=== PATIENT | female | born 1975 | race Caucasian/White ===

== ENCOUNTER 2016-11-28 18:10 | Emergency (ER) | payer OTHER ==
[~2016-11-28] VITALS: Ht 152.4 cm; Wt 59.0 kg
[~2016-11-28 18:10] MED LIST: APAP/CODEINE TAB 300; AUGMENTIN 875-1 EACH PO; BENZOYL PEROXIDE; BUPROPION HYDR150 M1 PO; CLINDAMYCIN; CLONAZEPAM1 MG PO; DESOGEN 0.15 MG1 TAB PO; DIFLUCAN150 M1 PO; FETZIMA120 MG PO; GUAIFENESIN-COD10 ML PO; IMITREX100 M1 PO; LOVAZA1 GM PO; TOPIRAMATE100 MG PO; ZOLPIDEM TART12.5 MG PO
[2016-11-28] MEDS ORDERED: TRAMADOL HCL E200 MG PO (18:51)
[2016-11-28] MEDS ORDERED: TRAMADOL HCL50 M1 PO (18:52)
[2016-11-28] MEDS ORDERED: DUAC 1.2-5% GEL45 GM TOP (18:53)
[2016-11-28] MEDS ORDERED: DIFFERIN TOP (18:53)
[2016-11-28] MEDS ORDERED: ACZONE60 GM TOP (18:53)
[2016-11-28] MEDS ORDERED: LINZESS145 MC1 PO (18:54)
[2016-11-28] MEDS ORDERED: GABAPENTIN300 M2 PO (18:54)
[2016-11-28] MEDS ORDERED: TOVIAZ4 MG PO (18:55)
[2016-11-28] MEDS ORDERED: FLUTICASONE PRO16 GM NASB (18:55)
--- NOTE | 2016-11-28 19:03 | ED HEADACHE COMPLAINT ---
History of Present Illness General Chief Complaint: Headache Stated Complaint: MENDOZA, X 5 DAYS Source: patient, family, old records Exam Limitations: no limitations Vital Signs & Intake/Output Vital Signs & Intake/Output Vital Signs Date Time Temp Pulse Resp B/P Pulse O2 O2 Flow FiO2 Ox Delivery Rate 11/28 2154 97.5 90 18 132/80 98 Room Air Room Air 11/28 2005 97.1 105 18 133/84 100 Room Air 11/28 1838 98.9 120 20 150/100 98 Room Air ED Intake and Output 11/29 0000 11/28 1200 Intake Total 1500 Output Total Balance 1500 Intake, IV 1500 Patient 130 lb Weight Allergies Coded Allergies: clarithromycin (From BIAXIN) (Intermediate, GI DISTRESS 11/28/16) Reconcile Medications Adapalene (Differin) 0.3 % GEL..GRAM. 1 YAMIL TOP QPM FACE (Reported) apply sparingly to face, avoid the sun Clindamycin Phos/Benzoyl Perox (Duac 1.2-5% Gel) 1.2 % (1 % BASE)-5 % GEL..GRAM. 1 YAMIL TOP QPM FACE (Reported) apply to affected area(s) Clonazepam 1 MG TABLET 1 TAB PO 6XDAILY PRN ANXIETY (Reported) Dapsone (Aczone) 5 % GEL..GRAM. 1 YAMIL TOP QAM FACE (Reported) Fesoterodine Fumarate (Toviaz) 4 MG TAB.ER.24H 1 TAB PO DAILY BLADDER ( Reported) Fluticasone Propionate 50 MCG/ACTUATION SPRAY.SUSP 2 SPRAY NASB PRN ALLERGIES (Reported) Gabapentin 300 MG CAPSULE 1 CAP PO PRN ANXIETY (Reported) LEVOMILNACIPRAN HYDROCHLORIDE (Fetzima) 120 MG CER 1 CAP PO DAILY DEPRESSION (Reported) Linaclotide (Linzess) 145 MCG CAPSULE 1 CAP PO DAILY GI (Reported) Lorazepam (Ativan) 1 MG TABLET 1 TAB PO QHS INSOMNIA [id number] Ethyl Esters (Lovaza) 1 GM CAP 2 CAP PO BID CHOLESTEROL ( Reported) Ondansetron (Zofran Odt) 4 MG TAB.RAPDIS 1 TAB SL TID NAUSEA Oxycodone HCl/Acetaminophen (Percocet 5-325 MG Tablet) 5 MG-325 MG TABLET 1 TAB PO TID PRN PAIN Sumatriptan Succinate (Imitrex) 100 MG TABLET 1 TAB PO AD PRN MIGRAINES ( Reported) with fluids as early as possible after the onset of a migraine attack;may repeat after 2 hours if headache returns, not to exce Tramadol HCl (Tramadol HCl ER) (Unknown Strength) TAB.ER.24H (Unknown Dose) PO DAILY UNKNOWN (Reported) Tramadol HCl (Unknown Strength) TABLET (Unknown Dose) PO AD PAIN (Reported) Zolpidem Tartrate (Zolpidem Tartrate ER) 12.5 MG TAB.MPHASE 2 TAB PO QPM PRN INSOMNIA (Reported) Triage Note: TRIAGE: PT TO ER C/C MIGRIANE HEADACHE, ONSET 03:30, CONSTANT SINCE ONSET. TRIED TO TAKE MEDICATIONS BUT WAS VOMITING. PT VERY EMOTIONAL AND DISTRAUGHT AT TRIAGE. REQUESTING THEY NOT GIVE HER TRAMADOL IT GAVE HER "CRAZY INSOMNIA". Triage Nurses Notes Reviewed? yes Onset: Abrupt Duration: day(s): (1), constant Timing: recent history Quality/Severity: moderate, achy, constant Severity Numbers: 6 Head Injury Location: frontal No Modifying Factors: none Associated Symptoms: anxiety : No Patient currently breastfeeds: No HPI: 40-year-old female with history of migraines anxiety depression presents complaining of a migraine headache without aura since 3:00 this morning associated with multiple episodes of nausea and vomiting. Patient's been unable to take any of her medication secondary to her symptoms. She reports positive photosensitivity. There is been no recent fall or head trauma no neck pain fever chills she denies any chest pain shortness of breath abdominal pain. The patient reports that she's been under increased stress at home and is very anxious at this time. She states she's been unable to take her anxiety medication secondary to her vomiting. (SEVEN LOPEZ) Past History Travel History Traveled to [place] past 21 day No Medical History Any Pertinent Medical History? 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 No (SEVEN LOPEZ) Review of Systems Review of Systems Constitutional: Reports: see HPI. All Other Systems: Reviewed and Negative Comments Review of systems: See HPI, All other systems negative. Constitutional, no chills no fever, HEENT: no sore throat no congestion, no ear pain Cardiovascular: No chest pain , no palpitation Skin, no jaundice no rashes, no change in skin Respiratory: No dyspnea no cough no sputum no hemoptysis GI: nausea vomiting, no diarrhea, no bloating/constipation : No dysuria No hematuria, frequency, no discharge Muscle skeletal: No joint pain, no joint swelling, no back pain, no neck pain, Neurologic: No numbness no confusion, headache Psych: stress anxiety no depression,. Heme/endocrine: No bruising no bleeding Immunology: No lymphadenopathy (SEVEN LOPEZ) Physical Exam Physical Exam General Appearance: well developed/nourished, alert, awake Cranial Nerves: normal hearing, normal speech, PERRL Comments: Well-developed well-nourished person in no acute distress HEENT: Normal EENT exam; PERRL, EOMI, no nystagmus. HEAD is atraumatic. moist mucous membranes. Neck: Supple, no lymphadenopathy, normal range of motion without pain or tenderness Back: Nontender, no CVA tenderness. Full range of motion Cardiovascular: Regular rate and rhythms no murmurs rubs Respiratory: No respiratory distress. Patient speaking in full complete sentences. Breath sounds clear to auscultation bilaterally: NO W/R/R Abdomen: Soft, nontender nondistended, no appreciable organomegaly. Extremity: No edema, full range of motion of extremities Neuro: Alert oriented x3, motor sensory normal, cranial nerves II through XII grossly intact. There were no obvious focal neurologic abnormalities. Skin: No appreciable rash on exposed skin, skin is warm and dry. Psych: Mood and affect is normal, memory and judgment is normal. Core Measures Severe Sepsis Present: No Septic Shock Present: No (SEVEN LOPEZ) Progress Differential Diagnosis: cluster MENDOZA, IC mass/tumor, intracranial Hem., meningitis , migraine MENDOZA, musculoskeletal pain, sinusitis, tension MENDOZA Plan of Care: Current Medications Sig/Cristóbal Start time Last Medication Dose Stop Time Status Admin Sodium Chloride 1,000 ML BOLUS ONE 11/28 1914 AC (Normal Saline 0.9%) 11/28 2013 Labs ordered old records reviewed patient is very anxious tearful Ativan 1 oral 30 IV fluids Zofran 4 IV ordered 11/28/2016 9:15:06 PM discussed with the patient plan of care she states she is feeling improved, IV fluids are running discussed with her need for close follow up with her primary care she is scheduled to see neurologist next week prescription for Percocet Ativan and Zofran provided she feels comfortable with this plan. I discussed with the patient at length all of their results, need for close follow up with their primary care physician. This week. I answered all of their questions, they feel comfortable with the plan and follow-up care. I discussed the medications that they will receive with the patient. I gave them signs and symptoms that could indicate an adverse reaction. I have advised them to limit their activities until they can see how they respond to the medication. (SEVEN LOPEZ) Departure Departure Time of Disposition: 2139 Disposition: HOME OR SELF CARE Condition: Stable Clinical Impression Primary Impression: Migraine Referrals: LASHONDA FERNANDEZ,JESUSITA (PCP/Family) Additional Instructions: Follow-up with your primary care physician as well as neurologist as scheduled. Zofran as needed for nausea. Percocet for breakthrough pain. Use caution as this is a narcotic and may make you drowsy no driving or drinking alcohol while taking. Ativan as directed- you may take one of these this evening to help you sleep. Do not take any Ambien or Klonopin that you have prescribed with this medication.. Stop taking the tramadol you have. These prescriptions were sent to your pharmacy Departure Forms: Customer Survey General Discharge Information Prescriptions: Current Visit Scripts Oxycodone HCl/Acetaminophen (Percocet 5-325 MG Tablet) 1 TAB PO TID PRN PAIN #10 TAB Lorazepam (Ativan) 1 TAB PO QHS #7 TAB Ondansetron (Zofran Odt) 1 TAB SL TID #12 TAB (SEVEN LOPEZ) PA/PUMPER GAGER APPRENTICE Co-Sign Statement Statement: ED Attending supervision documentation- [] I saw and evaluated the patient. I have also reviewed all the pertinent lab results and diagnostic results. I agree with the findings and the plan of care as documented in the PA's/PUMPER GAGER APPRENTICE's documentation. [x] I have reviewed the ED Record and agree with the PA's/PUMPER GAGER APPRENTICE's documentation. [] Additions or exceptions (if any) to the PAs/PUMPER GAGER APPRENTICE's note and plan are summarized below: [] (DYLON FERNANDEZ,VIVEK Diallo)
[2016-11-28] MEDS ORDERED: ZOFRAN ODT4 M1 SL (21:42)
[2016-11-28] MEDS ORDERED: PERCOCET 5-3251 EACH PO (21:42)
[2016-11-28] MEDS ORDERED: ATIVAN1 M1 PO (21:42)
[2016-11-28 21:55] VITALS: BP 132/80
== END 2016-11-28 21:55 ==
LOC: ERH 18:10
DX: G43.909 Migraine, unspecified, not intractable, without status migrainosus (principal)
CPT/HCPCS: 96361; 96374; 96375; 96376; J1885; J2405; J7040

== ENCOUNTER 2018-02-12 10:50 | Emergency (ER) | payer OTHER ==
[~2018-02-12] VITALS: Ht 152.4 cm; Wt 54.4 kg
[~2018-02-12 10:50] MED LIST changes: +ACZONE60 GM TOP; +ATIVAN1 M1 PO; +DIFFERIN TOP; +DUAC 1.2-5% GEL45 GM TOP; +FIORICET 50-301 EACH PO; +FLUTICASONE PRO16 GM NASB; +GABAPENTIN300 M2 PO; +LINZESS145 MC1 PO; +PERCOCET 5-3251 EACH PO; +TOVIAZ4 MG PO; +TRAMADOL HCL E200 MG PO; +TRAMADOL HCL50 M1 PO; +ZOFRAN ODT4 M1 SL
--- NOTE | 2018-02-12 11:00 | ED HEADACHE COMPLAINT ---
History of Present Illness General Chief Complaint: Headache Stated Complaint: MENDOZA Source: patient, old records Exam Limitations: no limitations Vital Signs & Intake/Output Vital Signs & Intake/Output Vital Signs Date Time Temp Pulse Resp B/P B/P Pulse O2 O2 Flow FiO2 Mean Ox Delivery Rate 02/12 1237 98.0 106 16 116/79 96 Room Air 02/12 1146 Room Air 02/12 1053 97.7 114 15 115/78 95 Room Air Room Air Allergies Coded Allergies: nitrofurantoin (From MACROBID) (Severe, HEADACHE 02/12/18) clarithromycin (From BIAXIN) (Intermediate, GI DISTRESS 02/12/18) [id number] Antimigraine Agents (Mild, NAUSEA/VOMITING 02/12/18) Reconcile Medications Adapalene (Differin) 0.3 % GEL..GRAM. 1 YAMIL TOP QPM FACE (Reported) apply sparingly to face, avoid the sun Amoxicillin/Potassium Clav (Augmentin 875-125 Tablet) 875 MG-125 MG TABLET 1 TAB PO BID SINUSIITS Butalb/Acetaminophen/Caffeine (Fioricet 50-300-40 MG Capsule) 50 MG-300 MG-40 MG CAPSULE 1 TAB PO Q6HR PRN HEADACHE Clindamycin Phos/Benzoyl Perox (Duac 1.2-5% Gel) 1.2 % (1 % BASE)-5 % GEL..GRAM. 1 YAMIL TOP QPM FACE (Reported) apply to affected area(s) Clonazepam 1 MG TABLET 1 TAB PO 6XDAILY PRN ANXIETY (Reported) Dapsone (Aczone) 5 % GEL..GRAM. 1 YAMIL TOP QAM FACE (Reported) Fesoterodine Fumarate (Toviaz) 4 MG TAB.ER.24H 1 TAB PO DAILY BLADDER ( Reported) Fluconazole (Diflucan) 150 MG TABLET 1 TAB PO ONCE YEAST INFECTINO Fluticasone Propionate 50 MCG/ACTUATION SPRAY.SUSP 2 SPRAY NASB PRN ALLERGIES (Reported) Gabapentin 300 MG CAPSULE 1 CAP PO PRN ANXIETY (Reported) LEVOMILNACIPRAN HYDROCHLORIDE (Fetzima) 120 MG CER 1 CAP PO DAILY DEPRESSION (Reported) Linaclotide (Linzess) 145 MCG CAPSULE 1 CAP PO DAILY GI (Reported) LORazepam (Ativan) 1 MG TABLET 1 TAB PO QHS INSOMNIA [id number]-[id number] Ethyl Esters (Lovaza) 1 GM CAP 2 CAP PO BID CHOLESTEROL ( Reported) Ondansetron (Zofran Odt) 4 MG TAB.RAPDIS 1 TAB SL TID NAUSEA Ondansetron (Zofran Odt) 4 MG TAB.RAPDIS 1 TAB SL TID PRN NAUSEA Ondansetron (Zofran Odt) 4 MG TAB.RAPDIS 1 TAB SL TID PRN NAUSEA Oxycodone HCl/Acetaminophen (Percocet 5-325 MG Tablet) 5 MG-325 MG TABLET 1 TAB PO TID PRN PAIN Oxycodone HCl/Acetaminophen (Percocet 5-325 MG Tablet) 5 MG-325 MG TABLET 1 TAB PO BID mendoza Oxycodone HCl/Acetaminophen (Percocet 5-325 MG Tablet) 5 MG-325 MG TABLET 1 TAB PO BID PRN HEADACHE Sumatriptan Succinate (Imitrex) 100 MG TABLET 1 TAB PO AD PRN MIGRAINES ( Reported) with fluids as early as possible after the onset of a migraine attack;may repeat after 2 hours if headache returns, not to exce Tramadol HCl (Tramadol HCl ER) (Unknown Strength) TAB.ER.24H (Unknown Dose) PO DAILY UNKNOWN (Reported) Tramadol HCl (Unknown Strength) TABLET (Unknown Dose) PO AD PAIN (Reported) Zolpidem Tartrate (Zolpidem Tartrate ER) 12.5 MG TAB.MPHASE 2 TAB PO QPM PRN INSOMNIA (Reported) Triage Note: PT TO ED FOR C/C OF HEADACHE SINCE THURSDAY TO ORBITAL AREA AND BACK OF HEAD. HX OF MIGRAINES. PT REPORTS NAUSEA AND VOMITING AND HASN'T BEEN ABLE TO KEEP DOWN A LOT OF FOOD. TOOK TRAMADOL LAST NIGHT WITHOUT RELIEF. Triage Nurses Notes Reviewed? yes Onset: Abrupt (q) Duration: day(s): (3), constant Timing: recent history Quality/Severity: moderate, achy Severity Numbers: 7 Head Injury Location: frontal, temporal No Modifying Factors: none Associated Symptoms: nausea/vomiting : No Patient currently breastfeeds: No HPI: 42-year-old female history of migraine disorder presents to ER for evaluation complaining of a right-sided headache for the past 3 days. She denies any known injury or trauma. She states the symptoms began on the right side of her head associated with a aura which she reports tunnel vision that has since resolved and vomiting. She denies fever chills. She reports to not being able to eat secondary to her nausea. She took tramadol and Excedrin without relief. She is followed by a neurologist.-She reports this feels similar to her previous headaches (Nino Vinson) Past History Travel History Traveled to [place] past 21 day No Medical History Any Pertinent Medical History? 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 No (Nino Vinson) Review of Systems Review of Systems Constitutional: Reports: see HPI. Comments Review of systems: See HPI, All other systems General: no fever HEENT: no sore throat, congestion, no ear pain Cardiovascular: No chest pain , no palpitation Skin: no rashes, no change in skin Respiratory: No dyspnea no cough no sputum no hemoptysis GI: nausea vomiting, no diarrhea, no bloating/constipation : No dysuria No hematuria, no frequency Muscle skeletal: No joint pain, no back pain, no neck pain, Neurologic: headache Psych: No stress no depression,. Heme/endocrine: No bruising no bleeding Immunology: No lymphadenopathy (Nino Vinson) Physical Exam Physical Exam General Appearance: well developed/nourished, alert, awake Cranial Nerves: normal hearing, normal speech, PERRL Comments: Well-developed well-nourished person in no acute distress Head/Face: Atraumatic, no maxillary/frontal sinus tenderness, no facial swelling Eyes: PERRL, EOMI, no conjunctival injection Ear:External auditory canal and Tympanic membranes clear, no erythema, no FB. Nose: atraumatic.Normal inspection: No bleeding Throat: Moist mucous membranes.Pharynx normal. No pharyngeal erythema/exudate seen. No stridor/drooling or assymetry. No swelling or edema. Neck: Supple, no lymphadenopathy, FROM Back: Nontender, Full range of motion Cardiovascular: Regular rate and rhythms no murmur Respiratory: C No respiratory distress. Patient speaking in full complete sentences. Breath sounds clear to auscultation bilaterally: NO W/R/R Abdomen: Soft, nontender nondistended, no appreciable organomegaly. Normal bowel sounds. No rebound/guarding, Extremity: No edema, full range of motion of extremities, 5 out of 5 strength noted to bilateral upper and lower extremities Neuro: Alert oriented x3, motor sensory normal, cranial nerves II through XII grossly intact. There were no obvious focal neurologic abnormalities. Skin: No appreciable rash on exposed skin, skin is warm and dry. Psych: Mood and affect is normal, memory and judgment is normal. Core Measures Sepsis Present: No Sepsis Focused Exam Completed? No (Nino Vinson) Progress Differential Diagnosis: cluster MENDOZA, IC mass/tumor, intracranial Hem., meningitis , migraine MENDOZA, subarach. Hem., tension MENDOZA, temporal arteritis Plan of Care: Current Medications Sig/Cristóbal Start time Last Medication Dose Stop Time Status Admin Morphine Sulfate 1 MG ONCE ONE 02/12 124 AC (Morphine) 02/12 124 Patient has been seen numerous times in the past for similar headaches imaging deferred no recent fall trauma patient is declining repeat CAT scan. She will be medicated with Toradol Benadryl morphine and Zofran and fluids we will continue to monitor 1230-patient reports pain improved with morphine, she is tolerating by mouth challenge. She's been seen numerous times in the past for similar headaches and discussed care center with Percocet and Augmentin and Zofran she is also requesting Diflucan. She is ambulatory around the emergency room with steady gait. She will follow up with primary care physician on Thursday (Nnio Vinson) Departure Departure Time of Disposition: 1235 Disposition: HOME OR SELF CARE Condition: Stable Clinical Impression Primary Impression: Headache Secondary Impressions: Sinusitis Referrals: George Ralph MD (PCP/Family) Additional Instructions: Follow up with your primary care physician on thursday. Percocet for breakthrough pain- this is a narcotic and highly addictive. zofran for nausea. augmentin and diflucan as directed. return with any concerns Departure Forms: Customer Survey General Discharge Information Prescriptions: Current Visit Scripts Oxycodone HCl/Acetaminophen (Percocet 5-325 MG Tablet) 1 TAB PO BID PRN HEADACHE #10 TAB Ondansetron (Zofran Odt) 1 TAB SL TID PRN NAUSEA #10 TAB Amoxicillin/Potassium Clav (Augmentin 875-125 Tablet) 1 TAB PO BID #14 TAB Fluconazole (Diflucan) 1 TAB PO ONCE #1 TAB (Nino Vinson) PA/BUDGET SPECIALIST Co-Sign Statement Statement: ED Attending supervision documentation- I saw and evaluated the patient. I have also reviewed all the pertinent lab results and diagnostic results. I agree with the findings and the plan of care as documented in the PA's/BUDGET SPECIALIST's documentation. x I have reviewed the ED Record and agree with the PA's/BUDGET SPECIALIST's documentation. [] Additions or exceptions (if any) to the PAs/BUDGET SPECIALIST's note and plan are summarized below: [] (Dayan FERNANDEZ,Arslan)
[2018-02-12] MEDS ORDERED: PERCOCET 5-3251 EACH PO (11:19)
[2018-02-12] MEDS ORDERED: DIFLUCAN150 M1 PO (11:19)
[2018-02-12] MEDS ORDERED: ZOFRAN ODT4 M1 SL (11:19)
[2018-02-12] MEDS ORDERED: AUGMENTIN 875-1 EACH PO (11:19)
[2018-02-12 12:37] VITALS: BP 116/79
== END 2018-02-12 13:04 ==
LOC: ERH 10:50
DX: J32.9 Chronic sinusitis, unspecified (principal)
CPT/HCPCS: 96374; 96375; 96376; J1200; J1885; J2405

== ENCOUNTER 2018-08-13 01:31 | Emergency (ER) | payer OTHER ==
--- NOTE | 2018-08-13 01:59 | ED HEADACHE COMPLAINT ---
History of Present Illness General Chief Complaint: Headache Stated Complaint: MIGRAINE-NOT A HEADACHE PER PT Source: patient Exam Limitations: no limitations Vital Signs & Intake/Output Vital Signs & Intake/Output Vital Signs Date Time Temp Pulse Resp B/P B/P Pulse O2 O2 Flow FiO2 Mean Ox Delivery Rate 08/13 0223 99.0 92 20 109/77 96 Room Air Allergies Coded Allergies: nitrofurantoin (From MACROBID) (Severe, HEADACHE 02/12/18) clarithromycin (From BIAXIN) (Intermediate, GI DISTRESS 02/12/18) [id number] Antimigraine Agents (Mild, NAUSEA/VOMITING 02/12/18) Reconcile Medications Adapalene (Differin) 0.3 % GEL..GRAM. 1 YAMIL TOP QPM FACE (Reported) apply sparingly to face, avoid the sun Amoxicillin/Potassium Clav (Augmentin 875-125 Tablet) 875 MG-125 MG TABLET 1 TAB PO BID SINUSIITS Butalb/Acetaminophen/Caffeine (Fioricet 50-300-40 MG Capsule) 50 MG-300 MG-40 MG CAPSULE 1 TAB PO Q6HR PRN HEADACHE Clindamycin Phos/Benzoyl Perox (Duac 1.2-5% Gel) 1.2 % (1 % BASE)-5 % GEL..GRAM. 1 YAMIL TOP QPM FACE (Reported) apply to affected area(s) Clonazepam 1 MG TABLET 1 TAB PO 6XDAILY PRN ANXIETY (Reported) Dapsone (Aczone) 5 % GEL..GRAM. 1 YAMIL TOP QAM FACE (Reported) Fesoterodine Fumarate (Toviaz) 4 MG TAB.ER.24H 1 TAB PO DAILY BLADDER ( Reported) Fluconazole (Diflucan) 150 MG TABLET 1 TAB PO ONCE YEAST INFECTINO Fluticasone Propionate 50 MCG/ACTUATION SPRAY.SUSP 2 SPRAY NASB PRN ALLERGIES (Reported) Gabapentin 300 MG CAPSULE 1 CAP PO PRN ANXIETY (Reported) LEVOMILNACIPRAN HYDROCHLORIDE (Fetzima) 120 MG CER 1 CAP PO DAILY DEPRESSION (Reported) Linaclotide (Linzess) 145 MCG CAPSULE 1 CAP PO DAILY GI (Reported) LORazepam (Ativan) 1 MG TABLET 1 TAB PO QHS INSOMNIA Jykeg-8-Urwa Ethyl Esters (Lovaza) 1 GM CAP 2 CAP PO BID CHOLESTEROL ( Reported) Ondansetron (Zofran Odt) 4 MG TAB.RAPDIS 1 TAB SL TID NAUSEA Ondansetron (Zofran Odt) 4 MG TAB.RAPDIS 1 TAB SL TID PRN NAUSEA Ondansetron (Zofran Odt) 4 MG TAB.RAPDIS 1 TAB SL TID PRN NAUSEA Oxycodone HCl/Acetaminophen (Percocet 5-325 MG Tablet) 5 MG-325 MG TABLET 1 TAB PO TID PRN PAIN Oxycodone HCl/Acetaminophen (Percocet 5-325 MG Tablet) 5 MG-325 MG TABLET 1 TAB PO BID mendoza Oxycodone HCl/Acetaminophen (Percocet 5-325 MG Tablet) 5 MG-325 MG TABLET 1 TAB PO BID PRN HEADACHE Sumatriptan Succinate (Imitrex) 100 MG TABLET 1 TAB PO AD PRN MIGRAINES ( Reported) with fluids as early as possible after the onset of a migraine attack;may repeat after 2 hours if headache returns, not to exce Tramadol HCl (Tramadol HCl ER) (Unknown Strength) TAB.ER.24H (Unknown Dose) PO DAILY UNKNOWN (Reported) Tramadol HCl (Unknown Strength) TABLET (Unknown Dose) PO AD PAIN (Reported) Zolpidem Tartrate (Zolpidem Tartrate ER) 12.5 MG TAB.MPHASE 2 TAB PO QPM PRN INSOMNIA (Reported) Triage Nurses Notes Reviewed? yes HPI: Patient presents for evaluation of migraine headache that began about 24 hours ago. The headache has been constant and described as a throbbing headache behind both eyes and working its way up across the top of her head and to the neck. This is typical migraine headache for her. She does have a preceding aura and she has been vomiting as well. She denies smoking alcohol or drug use. She has tried Zofran and tramadol, her usual medications, without improvement. She is also resorted to fragrant oils without improvement. Past History Travel History Traveled to [place] past 21 day No Medical History Any Pertinent Medical History? 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 No Review of Systems Review of Systems Constitutional: Reports: no symptoms. Eyes: Reports: no symptoms. Ears, Nose, Throat, Mouth: Reports: no symptoms. Respiratory: Reports: no symptoms. Cardiovascular: Reports: no symptoms. Gastrointestinal/Abdominal: Reports: no symptoms. Genitourinary: Reports: no symptoms. Musculoskeletal: Reports: no symptoms. Skin: Reports: no symptoms. Neurological/Psychological: Reports: headache. Hematologic/Endocrine: Reports: no symptoms. Endocrine: Reports: no symptoms. Immunologic/Allergic: Reports: no symptoms. All Other Systems: Reviewed and Negative Physical Exam Physical Exam Cranial Nerves: SEE BELOW Comments: Gen.: Well-nourished, well-developed, no acute respiratory distress. Head: Normocephalic, atraumatic. Nontender over temples Face: Nontender to percussion over the sinuses Eyes: Normal inspection bilaterally, PERRLA, EOMI Ears: Normal inspection bilaterally Nose: Normal inspection Throat/mouth : Moist mucosa Neck: Supple, full range of motion, no goiter Lungs: Quiet respirations Back: Normal range of motion Extremities: Normal range of motion grossly, equal radial pulses, no cyanosis clubbing or edema of upper extremities Neurologic: Cranial nerves 2 through 12 intact, speech is clear Skin: warm and dry Psychiatric: Calm, cooperative, no apparent delusions or hallucinations Core Measures Sepsis Present: No Sepsis Focused Exam Completed? No Progress Differential Diagnosis: cluster MENDOZA, migraine MENDOZA, sinusitis, tension MENDOZA Plan of Care: Current Medications Sig/Cristóbal Start time Last Medication Dose Stop Time Status Admin Hydromorphone HCl 1 MG ONCE ONE 08/13 330 UNVr (Dilaudid) 08/13 331 Comments: 08/13/2018 3:27:05 AM patient does receive medications and IV fluids but apparently no improvement in her headache pain. Dilaudid has been ordered. 08/13/2018 4:33:00 AM according to patient's nurse, nikia is feeling better. Departure Departure Disposition: HOME OR SELF CARE Condition: Stable Clinical Impression Primary Impression: Migraine headache Qualifiers: Migraine type: with aura Status migrainosus presence: with status migrainosus Intractability: not intractable Qualified Code: G43.101 - Migraine with aura, not intractable, with status migrainosus Referrals: George Ralph MD (PCP/Family) Additional Instructions: Return home and sleep. Follow up with your neurologist today. Return if any concerns or sudden worsening. Thank you for choosing the [facility] for your care. It was a pleasure to serve you today. Tien Daly M.D. [facility] Departure Forms: Customer Survey General Discharge Information
[2018-08-13 04:39] VITALS: BP 118/79
== END 2018-08-13 04:39 ==
LOC: ERH 01:31
DX: G43.101 Migraine with aura, not intractable, with status migrainosus (principal)
CPT/HCPCS: 96374; 96375; J1885; J2550